=== PATIENT | male | born 1985 | race Two or more races ===

== ENCOUNTER 2022-05-26 13:25 | Outpatient (CLI) | payer OTHER | END 2022-05-26 23:59 | disposition home or self-care (01) | LOC: LAB 13:25 | PROVIDERS: ATTEND Specialist | DX: Z01.812 Encounter for preprocedural laboratory examination (principal); Z20.822 Contact with and (suspected) exposure to COVID-19 | CPT/HCPCS: U0003; C9803 ==

== ENCOUNTER 2022-05-31 05:36 | Day surgery (SDC) | payer OTHER ==
[~2022-05-31] VITALS: Ht 175.3 cm; Wt 10.4 kg
[2022-05-31] MEDS ORDERED: ANESTHESIA TRAY IN PYXIS 1 EA TRAY MC ONE (06:25)
[2022-05-31] MEDS ORDERED: EPINEPHRINE (1:1000) 1 MG/ML AMPUL ONE (06:26)
[2022-05-31] MEDS ORDERED: BUPIVACAINE 0.5 % PF 150 MG/30 ML VIAL ONE ×2 (06:26→07:15)
[2022-05-31] MEDS ORDERED: methylPREDNISolone ACETATE 80 MG/ML VIAL ONE (06:26)
--- NOTE | 2022-05-31 06:30 | NUR ---
MS NURSERY WORKER NOTES RECEIVED THIS MORNING AT 0530,DAY SURGERY SCHEDULED FOR LEFT SHOULDER ARTHROSCOPY BY DR KHANNA.ALERT,ORIENTED X4,AMBULATORY,BREATHING NORMAL,NPO SINCE MIDNIGHT.SALINE LOCK PLACE ON LEFT HAND,FLUSHED WITH NS,KEPT PATENT.PICK BY ZULE[employer] SERVER SERVICE ASSISTANT TO SURGERY IN STABLE CONDITION.
[2022-05-31 06:50] VITALS: BP 132/81
[2022-05-31] MEDS ORDERED: MIDAZOLAM HCL 2 MG/2ML VIAL ONE (07:11)
[2022-05-31] MEDS ORDERED: FENTANYL PF 100MCG/2ML AMPUL ONE ×2 (07:11→08:53)
--- NOTE | 2022-05-31 07:29 | NUR ---
MS RN OPENING NOTE PT WAS NOT IN THE ROOM. PER NIGHT NURSE JANE, PT IS IN THE OR FOR A LEFT SHOULDER ARTHROSCOPY PROCEDURE.
[2022-05-31] MEDS ORDERED: HYDROCODONE/APAP 5/325MG TABLET PO PRN (10:00)
[2022-05-31 10:30] VITALS: BP 116/73
--- NOTE | 2022-05-31 10:35 | NUR ---
RN NOTE PT BACK FROM OR VIA BED WITH OR NURSETYSHAWN RN. RECEIVED PT ASLEEP, EASILY AROUSED. ON RA, TOLERATING WELL. NO SOB NOTED. NOT IN ANY SIGN OF DISTRESS. PT ON S/P LEFT SHOULDER ARTHROSCOPY POSTERIOR LABRAL REPAIR, DRESSING IN PLACE AND INTACT WITH NO ACTIVE BLEEDING NOTED AT THIS TIME. DENIES PAIN OR DISCOMFORT. SLING ON THE LEFT ARM IN PLACE FOR COMFORT. VITAL SIGNS: BP 116/77, P 59, R 18, TEMP 97.6, SPO2 96%. WILL CONTINUE TO MONITOR PT. Addendum: 05/31/22 at 1206 by MARY CISSE RN ADDENDUM PER OR NURSETYSHAWN RN, PT CAN START CLEAR LIQUID DIET PER AND PT CAN BE DISCHARGED WHEN PT IS COMFORTABLE PER MD.
[2022-05-31] MEDS ORDERED: ACET-73 PO (10:39)
[2022-05-31] MEDS ORDERED: IBUP-2715 PO (10:39)
--- NOTE | 2022-05-31 10:50 | NUR ---
RN NOTE REASSESSED PT'S ON S/P LEFT SHOULDER ARTHROSCOPY POSTERIOR LABRAL REPAIR, DRESSING IN PLACE AND INTACT WITH NO ACTIVE BLEEDING NOTED AT THIS TIME. DENIES PAIN OR DISCOMFORT. SLING ON THE LEFT ARM IN PLACE FOR COMFORT. VITAL SIGNS: BP 117/68, P 61, R 18, TEMP 98.0, SPO2 96%. WILL CONTINUE TO MONITOR PT.
--- NOTE | 2022-05-31 11:20 | NUR ---
RN NOTE REASSESSED PT'S ON S/P LEFT SHOULDER ARTHROSCOPY POSTERIOR LABRAL REPAIR, DRESSING IN PLACE AND INTACT WITH NO ACTIVE BLEEDING NOTED AT THIS TIME. DENIES PAIN OR DISCOMFORT. SLING ON THE LEFT ARM IN PLACE FOR COMFORT. VITAL SIGNS: BP 119/63, P 62, R 18, TEMP 97.8, SPO2 96%. WILL CONTINUE TO MONITOR PT.
--- NOTE | 2022-05-31 12:20 | NUR ---
RN NOTE REASSESSED PT'S ON S/P LEFT SHOULDER ARTHROSCOPY POSTERIOR LABRAL REPAIR, DRESSING IN PLACE AND INTACT WITH NO ACTIVE BLEEDING NOTED AT THIS TIME. DENIES PAIN OR DISCOMFORT. SLING ON THE LEFT ARM IN PLACE FOR COMFORT. VITAL SIGNS: BP 120/63, P 60, R 18, TEMP 97.8, SPO2 95%. WILL CONTINUE TO MONITOR PT.
--- NOTE | 2022-05-31 13:39 | NUR ---
ELEVATOR CONSTRUCTOR NOTE PT DISCHARGED TO HOME IN STABLE CONDITION. PT A/O X4, ABLE TO MAKE NEEDS KNOWN. ON RA, TOLERATING WELL WITH SPO2 96%. NO SOB NOTED. NOT IN ANY SIGN OF RESPIRATORY DISTRESS. VITAL SIGNS TAKEN, STABLE, AND RECORDED. PT REFUSED SKIN ASSESSMENTS AND PHOTOGRAPHS OF SKIN ISSUES. ALL BELONGINGS ACCOUNTED FOR. DISCHARGED INSTRUCTIONS AND HEALTH TEACHINGS GIVEN TO PT AND PT VERBALIZED UNDERSTANDING. IV ACCESS IN RIGHT HAND G #20 REMOVED WITH NO ACTIVE BLEEDING NOTED. DRY PRESSURE DRESSING APPLIED TO SITE. ON S/P LEFT SHOULDER ARTHROSCOPY POSTERIOR LABRAL REPAIR, DRESSING IN PLACE AND INTACT WITH NO ACTIVE BLEEDING NOTED. DENIES PAIN OR DISCOMFORT. SLING STILL ON THE LEFT ARM IN PLACE FOR COMFORT. PT LEFT THE UNIT AT 1335 AMBULATORY ACCOMPANIED BY RN NURSE. PT WAS PICKED UP BY AUNT VIA PRIVATE CAR. AND CHARGED NURSE AWARE OF DISCHARGED.
== END 2022-05-31 19:00 | disposition home or self-care (01) ==
LOC: DS 05:36 → UNDOADMIN 05:42 → MED 05:42 → UNDODISIN 13:30 → DS 19:00
PROVIDERS: ATTEND Specialist
DX: S43.402A Unspecified sprain of left shoulder joint, initial encounter (principal); Z20.822 Contact with and (suspected) exposure to COVID-19; X58.XXXA Exposure to other specified factors, initial encounter; Y93.89 Activity, other specified; Y92.89 Other specified places as the place of occurrence of the external cause; Y99.8 Other external cause status
CPT/HCPCS: 29806; J3490; J0171; J3010 ×2; C1713; J2250; A4217; G0378; J0330; J0690; J1040; J1100; J1885; J2405; J2704; J7030